=== PATIENT | male | born 1955 | race Hispanic/Latino ===

== ENCOUNTER 2018-06-18 10:20 | Outpatient (CLI) | payer BC | END 2018-06-18 10:21 | disposition home or self-care (01) | LOC: BICRAD 10:20 | PROVIDERS: ATTEND Family Medicine | DX: M79.673 Pain in unspecified foot (principal) ==

== ENCOUNTER 2018-11-25 11:07 | Emergency (ER) | payer BC ==
[2018-11-25 12:11] LABS: #Eosinphils 0.1 thou/uL (0.0-0.7); #Lymphocytes 1.8 thou/uL (1.20-3.40); #Monocytes 0.5 thou/uL (0.11-0.59); #Neutrophils 5.7 thou/uL (1.40-6.50); %Basophils 0.4 % (0.0-1.0); %Eosinophils 0.9 % (0.0-10.0); %Monocytes 5.6 % (0.0-10.0); %Neutrophils 71.1 % (42.0-75.0); Hemoglobin 14.4 g/dL (14.0-18.0); Mean Corpuscular HGB CONC 33.4 g/dL (32.0-36.0); Mean Corpuscular Hemoglobin 28.5 pg (27.0-31.0); Mean Corpuscular Volume 85.3 fL (78.0-98.0); Mean Platelet Volume 8.6 fL (7.4-10.4); Platelet Count 214 thou/uL (130-400); RBC Distribution Width 11.5 % (11.5-14.5); Red Blood Cell (RBC) Count 5.05 mill/uL (4.70-6.10)
[2018-11-25 12:30] LABS: ALT (SGPT) 20 U/L (8-55); AST (SGOT) 18 U/L (5-34); Albumin 4.3 g/dL (3.4-4.8); Alkaline Phosphatase 60 U/L (40-150); Anion Gap 13 mmol/L (10-20); BUN (Urea Nitrogen) 14 mg/dL (8.4-25.7); Bilirubin, Total 0.6 mg/dL (0.2-1.2); Calc. Creatinine Clearance 0 mL/min (70-130); Calcium 9.9 mg/dL (7.8-10.44); Carbon Dioxide 26 mmol/L (23-31); Chloride 103 mmol/L (98-107); Estimated GFR-MDRD Greater than 90; Globulin 3.2 g/dL (2.4-3.5); Glucose 157 mg/dL (80-115); Lipase 24 U/L (8-78); Potassium 4.7 mmol/L (3.5-5.1); Protein, Total 7.5 g/dL (5.8-8.1); Sodium 137 mmol/L (136-145)
[2018-11-25 15:09] LABS: Bilirubin Negative (Negative); Blood, Urine Negative (Negative); Clarity CLEAR (Clear); Glucose, Urine (Dipstick) Negative (Negative); Leukocyte Negative (Negative); Nitrite Negative (Negative); Protein, Urine (Dipstick) Trace mg/dL (Neg-Trace); Specific Gravity, Urine 1.021 (1.002-1.036); Urobilinogen 0.2 mg/dL (0.2-1.0); pH, Urine 5.5 (5.0-9.0)
--- NOTE | 2018-11-25 19:30 | MRI ---
MRI LUMBAR SPINE WITH AND WITHOUT CONTRAST: Date: 11/25/18 HISTORY: Colonoscopy, removed cancerous polyp in past. History of cervical and lumbar fusion. Right hip and ri ght leg pain, starting this morning. COMPARISON: None. TECHNIQUE: MRI of the lumbar spine is performed with and without intravenous Gadolinium administration. Multiseq uential, multiplanar imaging is performed. FINDINGS: There is overall appropriate T1 marrow signal intensity of the lumbar vertebra. There is an intrinsic T1 and T2 hyperintense lesion at L2 compatible with a vertebral body hemangioma. There is no signifi cant STIR hyperintensity to suggest vertebral body edema or ligamentous injury. There is no abnormal enhancement of the vertebral bodies. There is no abnormal enhancement within the thecal sac, includin g the cauda equina and conus medullaris. There are intrinsic T2 hyperintense lesions in the left kidney, likely representing cysts. The overall AP diameter of the central spinal canal is somewhat diminutive secondary to congenitally foreshortened pedicles. T12-L1: Adequate disc hydration. No significant central canal stenosis or foraminal narrowing. L1-L2: Desiccation with mild loss of disc space height. Small left and right paracentral disc bulges without significant central canal stenosis. Moderate bilateral foraminal narrowing. L2-L3: Adequate disc hydration. There is a central/left subarticular disc bulge. Overall, there is m ild central canal stenosis. There is partial obscuration of the traversing left L3 nerve root. Right subarticular zone is unremarkable. Moderate right and left neural foraminal narrowing. L3-L4: Desiccation with mild loss of disc space height. Broad based disc bulge, ligamentum flavum th ickening, and facet hypertrophy of moderate central canal stenosis. There is obscuration of bilateral traversing L4 nerve roots. Moderate right and left foraminal narrowing. L4-L5: Desiccation with moderate loss of disc space height. Broad based disc bulge results in modera te central canal stenosis. There is associated ligamentum flavum thickening and facet hypertrophy. Mo derate bilateral foraminal narrowing. L5-S1: Desiccation with moderate loss of disc space height. There is a generalized disc bulge withou t any significant central canal stenosis. Disc material does encroach upon both subarticular zones wi thout any obscuration of either traversing S1 nerve roots. There is a left hemilaminectomy defect. Th ere is no significant central canal stenosis. Moderate right and moderate to severe left foraminal na rrowing. There is a left hemilaminectomy defect. On the postcontrast images, there is enhancing scar tissue encompassing the traversing left S1 nerve root. IMPRESSION: 1. Degenerative changes of lumbar spine as detailed above. There is moderate central canal stenosis at multiple levels. There is significant foraminal narrowing at multiple levels as described above. 2. Postoperative changes at L5-S1 with enhancing scar tissue encompassing the traversing left S1 ner ve root. POS: [facility]
== END 2018-11-25 20:27 | disposition home or self-care (01) ==
LOC: ERS 11:07
DX: M54.16 Radiculopathy, lumbar region (principal); R33.9 Retention of urine, unspecified; E11.9 Type 2 diabetes mellitus without complications; K21.9 Gastro-esophageal reflux disease without esophagitis; E78.5 Hyperlipidemia, unspecified; I10 Essential (primary) hypertension; Z79.899 Other long term (current) drug therapy; Z79.84 Long term (current) use of oral hypoglycemic drugs; Z79.82 Long term (current) use of aspirin
CPT/HCPCS: 36415; 36416; 51702; 51798; 72158; 80053; 81003; 83690; 85025

== ENCOUNTER 2018-11-26 19:07 | Emergency (ER) | payer BC ==
[2018-11-26 20:01] LABS: #Basophils 0.1 thou/uL (0.0-0.2); #Lymphocytes 1.2 thou/uL (1.20-3.40); #Monocytes 0.3 thou/uL (0.11-0.59); #Neutrophils 5.1 thou/uL (1.40-6.50); %Basophils 0.8 % (0.0-1.0); %Eosinophils 0.1 % (0.0-10.0); %Lymphocytes 17.9 % (21.0-51.0); %Monocytes 3.7 % (0.0-10.0); %Neutrophils 77.4 % (42.0-75.0); Hemoglobin 14.5 g/dL (14.0-18.0); Mean Corpuscular HGB CONC 34.3 g/dL (32.0-36.0); Mean Corpuscular Hemoglobin 28.9 pg (27.0-31.0); Mean Corpuscular Volume 84.3 fL (78.0-98.0); Mean Platelet Volume 9.7 fL (7.4-10.4); Platelet Count 226 thou/uL (130-400); RBC Distribution Width 11.2 % (11.5-14.5); Red Blood Cell (RBC) Count 5.03 mill/uL (4.70-6.10); White Blood Cell (WBC) Count 6.6 thou/uL (4.8-10.8)
[2018-11-26 20:14] LABS: ALT (SGPT) 21 U/L (8-55); AST (SGOT) 23 U/L (5-34); Albumin 4.3 g/dL (3.4-4.8); Alkaline Phosphatase 63 U/L (40-150); Anion Gap 17 mmol/L (10-20); BUN (Urea Nitrogen) 18 mg/dL (8.4-25.7); Bilirubin, Total 0.5 mg/dL (0.2-1.2); Calc. Creatinine Clearance 0 mL/min (70-130); Calcium 9.8 mg/dL (7.8-10.44); Carbon Dioxide 22 mmol/L (23-31); Chloride 103 mmol/L (98-107); Estimated GFR-MDRD 70; Globulin 3.6 g/dL (2.4-3.5); Glucose 221 mg/dL (80-115); Potassium 4.2 mmol/L (3.5-5.1); Protein, Total 7.9 g/dL (5.8-8.1); Sodium 138 mmol/L (136-145)
--- NOTE | 2018-11-26 21:12 | CT ---
HEAD CT WITHOUT CONTRAST: 11/26/18 HISTORY: Right leg numbness and weakness. COMPARISON: None. FINDINGS: No parenchymal hemorrhage or extra-axial hematoma. No midline shift. Basilar cisterns are patent. Bra in volume, age appropriate. Cortical villela-white matter differentiation is preserved. Ventricles and s ulci are patent and symmetric. Note is made of a cavum septum pellucidum and cavum vergae. A lucie cis terna magna is noted. Calvarium is intact. Adequate aeration of the sinuses and mastoid air cells. IMPRESSION: No acute intracranial process. POS: [facility]
--- NOTE | 2018-11-26 22:01 | CT ---
CTA CHEST WITH CONTRAST WITH 3D VOLUME RENDERING CTA ABDOMEN AND PELVIS WITH CONTRAST WITH 3D VOLUME RENDERING 11/26/18 CLINICAL HISTORY: Saddle anesthesia, right sided pain. FINDINGS: Thoracoabdominal aorta is normal in caliber. There is mild vascular calcification. No evidence of acu te dissection or periaortic hematoma. There is coronary artery calcium. Scattered linear densities of the lungs may be related to atelectasis and/or scar. Low attenuation of the hepatic parenchyma may b e related to fatty infiltration and/or phase of enhancement. Correlate with liver function enzymes. T here is a subtle hypodensity of the anterolateral left kidney which may relate to a cyst, although is incompletely characterized on the basis of this exam. There is diffuse osseous degenerative change. IMPRESSION: No evidence of acute aortic dissection, aneurysm or periaortic hematoma. POS: [facility]
== END 2018-11-26 21:58 | disposition home or self-care (01) ==
LOC: SCSER 19:07
DX: R20.2 Paresthesia of skin (principal); E11.9 Type 2 diabetes mellitus without complications; K21.9 Gastro-esophageal reflux disease without esophagitis; E78.5 Hyperlipidemia, unspecified; I10 Essential (primary) hypertension; Z79.84 Long term (current) use of oral hypoglycemic drugs; Z79.899 Other long term (current) drug therapy; Z79.82 Long term (current) use of aspirin
CPT/HCPCS: 70450; 71275; 80053; 85025

== ENCOUNTER 2018-12-08 14:03 | Outpatient (CLI) | payer BC | END 2018-12-08 14:04 | disposition home or self-care (01) | LOC: LABBT 14:03 | PROVIDERS: ATTEND Neurological Surgery | DX: Z01.818 Encounter for other preprocedural examination (principal) | CPT/HCPCS: 93005; 93010 ==

== ENCOUNTER 2018-12-12 05:48 | Day surgery (SDC) | payer BC ==
[2018-12-08 14:22] VITALS: BMI 33.3
--- NOTE | 2018-12-11 17:40 | HP ---
HISTORY OF PRESENT ILLNESS: Mr. Brush is a patient known to us for previous ACDF, who returns now for followup on an ER evaluation of perineal tingling as well as bilateral pain and numbness, right greater than left and also L5 and S1 distribution at night. He also gets some L4 numbness and potentially L3. MRI from last month at [facility] [place] reveals foraminal and lateral recess stenosis of moderate to severe nature at L3-S1 bilaterally that would fit all of his symptoms, although the perineal numbness is rather atypical. As he had prior experience with his neck and ultimately got the surgery, we would rather not do any conservative management at this time and just fix the problem. PAST MEDICAL HISTORY: Significant for diabetes, hyperlipidemia, gastroesophageal reflux disease, and hypertension. MEDICATIONS: 1. Metformin. 2. Lipitor. 3. Lotrel. 4. Nexium. ALLERGIES: NO KNOWN DRUG ALLERGIES. PAST SURGICAL HISTORY: Unspecified back surgery and a C3-5 ACDF. PHYSICAL EXAMINATION: GENERAL: The patient is alert and oriented x3. MUSCULOSKELETAL: Gait is antalgic and slowed. Lower extremity motor exam is normal. ASSESSMENT: Spinal stenosis. PLAN: Dr. Layton met with the patient, reviewed imaging, advocated for right L5-S1 decompression and L5 foraminotomy. He explained to the patient the risks, benefits, and alternatives of the procedure. The patient expressed understanding and elected to move forward with surgery as discussed. I do believe the patient is mentally competent and capable of making medical decisions for himself. We will move forward with surgery as planned. Job ID: [id number]
[2018-12-12] MEDS ORDERED: Bupivacaine HCl 0.5%/Epinephrine 1:200,000/PF 30 ml Vial ONE (06:21)
[2018-12-12] MEDS ORDERED: Thrombin 5000 UNITS/5 ML VIAL ONE (06:21)
[2018-12-12] MEDS ORDERED: Fentanyl 100 MCG/2 ML VIAL ONE ×2 (06:30→08:57)
[2018-12-12] MEDS ORDERED: Tamsulosin HCl 0.4 MG CAP ONE (08:44)
--- NOTE | 2018-12-12 09:40 | OP ---
DATE OF PROCEDURE: 12/12/2018 MEDICAID BILLING SPECIALIST: Dakota Martinez PA-C. INDICATION: Pain. DIAGNOSIS: Lumbar radiculopathy. PROCEDURE: L5-S1 lumbar decompression, right. ANESTHESIA: General. DESCRIPTION OF PROCEDURE: The patient was brought into the operating room, placed under general anesthesia. He was flipped from supine to prone position on the operating room table. A linear incision was planned on the right at L5. After prepping and draping and after preoperative pause, the incision was created. The soft tissues were swept right of midline. A self-retaining retractor was placed in the wound for optimal exposure. After confirming appropriate level with C-arm fluoroscopy, high-speed cutting drill bit was used to perform a laminectomy extending through L5, inferior aspect of L4, and the superior aspect of S1. The exiting and descending L5 nerve root was identified as was the descending S1 nerve root. Medial facetectomy was performed over the exiting L5 nerve root in order to decompress the foramen. The wound was then irrigated. Hemostasis was maintained throughout. The wound was then closed in anatomic layers and a pressure dressing was applied. There were no known procedural complications. Job ID: [id number]
[2018-12-12] MEDS ORDERED: HYDROcodone/Acetaminophen 5/325 mg Tablet ONE (10:19)
[2018-12-12] MEDS ORDERED: diphenhydrAMINE 50 MG/ML VIAL ONE (16:18)
[2018-12-12] MEDS ORDERED: Lidocaine 1% PF 5 ML VIAL ONE (16:18)
[2018-12-12] MEDS ORDERED: Ondansetron PF 4 MG/2 ML Vial ONE (16:18)
[2018-12-12] MEDS ORDERED: Rocuronium Bromide 10 MG/ML (10ML VIAL) ONE (16:18)
[2018-12-12] MEDS ORDERED: PROPOFOL 200 MG/20 ML VIAL ONE (16:18)
[2018-12-12] MEDS ORDERED: Metoclopramide HCl 10 MG/2 ML VIAL ONE (16:18)
== END 2018-12-12 17:30 | disposition home or self-care (01) ==
LOC: SDC 05:48
PROVIDERS: ATTEND Neurological Surgery
PROC: 01NB0ZZ Release Lumbar Nerve, Open Approach (ICD-10-PCS; principal; 2018-12-12)
DX: M54.17 Radiculopathy, lumbosacral region (principal); M48.07 Spinal stenosis, lumbosacral region; I10 Essential (primary) hypertension; E11.9 Type 2 diabetes mellitus without complications; E78.5 Hyperlipidemia, unspecified; K21.9 Gastro-esophageal reflux disease without esophagitis; Z98.1 Arthrodesis status; Z79.82 Long term (current) use of aspirin; Z79.84 Long term (current) use of oral hypoglycemic drugs; Z79.899 Other long term (current) drug therapy
CPT/HCPCS: 51798; 76000; G0103; J0670; J1200; J2001; J2405; J2704; J2765; J3010

== ENCOUNTER 2019-05-12 08:59 | Outpatient (CLI) | payer BC ==
--- NOTE | 2019-05-12 10:38 | MRI ---
MRI of the lumbar spine with and without contrast: 05/12/2019 COMPARISON: 11/25/2018 HISTORY: Peripheral neuropathy, lumbar spine surgery in the past, bilateral lower extremity radiculop athy TECHNIQUE: Multiplanar multisequence MR imaging of the lumbar spine obtained with and without contras t FINDINGS: The sagittal STIR imaging demonstrates no focal area of osseous marrow edema. There is mild postoperative increased STIR signal associated with the right-sided paraspinal musculature at the L5 and S1 level. There is a benign hemangioma within the L2 vertebral body. On the basis of 5 lumbar type vertebral bodies, the conus medullaris terminates at the T12-L1 level. T12-L1: Mild bilateral facet hypertrophy with no significant central canal or neural foraminal stenos is. L1-2: There is disc space narrowing and disc desiccation with mild disc bulge, stable. Stable mild bi lateral facet hypertrophy. There is moderate left and mild right neural foraminal stenosis. No significant central canal stenosis. L2-3: Stable disc desiccation and mild disc bulge. No significant central canal stenosis. Mild bilate ral facet hypertrophy. Mild right and moderate left neural foraminal stenosis. L3-4: There is disc space narrowing, disc desiccation, and disc bulge with superimposed disc protrusi on in the right paracentral and right foraminal region. This causes a moderate degree of central canal stenosis, slightly worsened, with severe right lateral recess stenosis. Bilateral facet hypertr ophy noted with moderate/severe bilateral neural foraminal stenosis, right greater than left. L4-5: Prominent bilateral facet hypertrophy. Disc space narrowing with disc desiccation and mild disc bulge. No significant central canal stenosis. Severe left and moderate right neural foraminal stenosis noted. Small developing synovial cyst noted along the medial aspect of the left facet joint measuring 7-8 mm. L5-S1: Disc space narrowing and disc desiccation with mild disc bulge and mild central canal stenosis . Prominent bilateral facet hypertrophy, right greater than left. Vacuum disc formation noted. Severe bilateral neural foraminal stenosis. There is a very small disc herniation in the right parace ntral region with slight inferior migration. Review of the retroperitoneal structures demonstrates no acute findings. The postcontrast imaging dem onstrates enhancement of the posterior right-sided paraspinal musculature at the L5 and S1 levels, consistent with prior surgery in this location. There is enhancement within the right neural foramen at the L5-S1 level suggesting postoperative scar. There is probable associated enhancement of the right L5 nerve root. IMPRESSION: Prominent multilevel degenerative change noted within the lumbar spine as detailed above. Postoperative changes are noted as well with associated scar, including within the neural foramen on the right at L5-S1.
[2019-05-12] MEDS ORDERED: Gadobenate Dimeglumine 529 MG/1 ML (20ML VIAL) ONE (14:03)
== END 2019-05-12 09:00 | disposition home or self-care (01) ==
LOC: BICMRI 08:59
PROVIDERS: ATTEND Psychiatry & Neurology Neurology
DX: G62.9 Polyneuropathy, unspecified (principal); M47.816 Spondylosis without myelopathy or radiculopathy, lumbar region; Z98.890 Other specified postprocedural states
CPT/HCPCS: 72158; A9577

== ENCOUNTER 2019-05-30 03:20 | Inpatient (IN) | payer BC ==
[2019-05-30 04:04] LABS: Bilirubin Negative (Negative); Blood, Urine Small (Negative); Clarity Cloudy (Clear); Glucose, Urine (Dipstick) Negative (Negative); Leukocyte Small (Negative); Nitrite Negative (Negative); Protein, Urine (Dipstick) Trace mg/dL (Neg-Trace); Urobilinogen 0.2 mg/dL (Less than 2)
[2019-05-30 04:07] LABS: ALT (SGPT) 25 U/L (8-55); AST (SGOT) 15 U/L (5-34); Alkaline Phosphatase 48 U/L (40-150); Anion Gap 16 mmol/L (10-20); BUN (Urea Nitrogen) 16 mg/dL (8.4-25.7); Bilirubin, Total 1.3 mg/dL (0.2-1.2); Calc. Creatinine Clearance 0 mL/min (70-130); Calcium 9.4 mg/dL (7.8-10.44); Carbon Dioxide 22 mmol/L (23-31); Chloride 103 mmol/L (98-107); Estimated GFR-MDRD 72; Globulin 3.3 g/dL (2.4-3.5); Glucose 149 mg/dL (80-115); Potassium 3.9 mmol/L (3.5-5.1); Protein, Total 7.3 g/dL (5.8-8.1); Sodium 137 mmol/L (136-145)
[2019-05-30 04:09] LABS: Band 3 % (5-11); Hemoglobin 12.8 g/dL (14.0-18.0); Lymphocytes 10 % (21-51); MDiff Complete? YES; Mean Corpuscular HGB CONC 35.7 g/dL (32.0-36.0); Mean Corpuscular Hemoglobin 30.3 pg (27.0-31.0); Mean Corpuscular Volume 85.1 fL (78.0-98.0); Mean Platelet Volume 8.1 fL (7.4-10.4); Monocytes 5 % (0-10); Neutrophil 82 % (42-75); Platelet Count 189 thou/uL (130-400); RBC Distribution Width 11.7 % (11.5-14.5); Red Blood Cell (RBC) Count 4.22 mill/uL (4.70-6.10); Toxic Granulation SLIGHT; White Blood Cell (WBC) Count 23.7 thou/uL (4.8-10.8)
[2019-05-30 04:13] LABS: Bacteria/HPF Rare-Few HPF (None Seen); RBC/HPF 0-3 HPF (0-3); Squamous Epithelial 0-3 HPF (0-3); WBC/HPF 21-50 HPF (0-3)
[2019-05-30] MEDS ORDERED: cefTRIAXone\\ROCEPHIN 2 GM VIAL ONE (04:39)
[2019-05-30 06:41] VITALS: BMI 31.3
[2019-05-30] MEDS ORDERED: Ondansetron PF 4 MG/2 ML Vial IVP PRN ×2 (06:47→08:04)
[2019-05-30] MEDS ORDERED: Ondansetron ODT 4 MG TAB PO PRN (06:48)
[2019-05-30] MEDS ORDERED: Acetaminophen 325 MG TAB PO PRN (06:48)
[2019-05-30] MEDS ORDERED: Lactated Ringer's 1,000 ML IV SCH (07:00)
[2019-05-30] MEDS ORDERED: Bisacodyl 5 MG TAB PO PRN (08:04)
[2019-05-30] MEDS ORDERED: Senokot S 8.6-50 MG TAB PO PRN (08:04)
[2019-05-30] MEDS ORDERED: traMADol HCl 50 MG TAB PO PRN (08:05)
[2019-05-30] MEDS: Aspirin 81 mg Enteric Coated Tablet PO SCH (09:27)
[2019-05-30] MEDS: Tamsulosin HCl 0.4 MG CAP PO SCH ×2 (09:27→20:12)
[2019-05-30] MEDS: Enoxaparin Sodium 40 MG/0.4 ML SYRINGE SC SCH (09:27)
[2019-05-30] MEDS: Amlodipine 5 mg/Benazepril 20 mg CAP PO SCH (09:40)
--- NOTE | 2019-05-30 09:48 | RAD ---
CHEST 1 VIEW: Date: 05/30/19 HISTORY: Pain. Fever. FINDINGS: Normal cardiac silhouette. Lungs and pleural spaces are clear. No pneumothorax or osseous abnormaliti es. IMPRESSION: No acute cardiopulmonary process. POS: [facility]
[2019-05-30] MEDS: Acetaminophen 325 MG TAB PO PRN ×2 (12:13→20:18)
[2019-05-30] MEDS ORDERED: TICAGRELOR 90 MG TABLET PO SCH (12:30)
--- NOTE | 2019-05-30 14:29 | CT ---
CT ABDOMEN WITHOUT CONTRAST: CT PELVIS WITHOUT CONTRAST: HISTORY: Complicated, febrile urinary tract infection. Flank pain. COMPARISON: None. CORRELATION: Dissection protocol CT from 11/26/2018. FINDINGS: ABDOMEN: The lung bases are clear. Normal heart size. Unremarkable aorta. Limited evaluation of t he solid organs by lack of IV contrast. Grossly no solid organ abnormality. Gallbladder: Unremarkable. No gastrohepatic, retrocrural, or periportal lymphadenopathy. No mesenteric mass, lymphadenopathy, free air, or free fluid. Limited evaluation of the alimentary canal due to lack of oral contrast. No evidence of small bowel obstruction. Ileocecal junction is unremarkable. Normal caliber appendix. Scattered fecal material in a nondistended, nondilated colon. Diverticulosis without evidence of diverticulitis. Bilaterally no hydronephrosis, nephrolithiasis, or significant perinephric fat stranding. Bilateral ureters have a normal caliber. No hydroureter, periureteral fat stranding, or choledocholithiasis. There is a hypodensity in the mid to upper pole left kidney, measuring 0.9 x 1.2 cm, with an attenua tion coefficient suggesting a simple cyst. PELVIS: A Contreras catheter is noted in the urinary bladder. No pelvic mass, lymphadenopathy, free air , or free fluid. No lytic or blastic lesions in the osseous structures. IMPRESSION: No evidence of obstructive uropathy. Transcribed Date/Time: 05/30/2019 2:41 PM
[2019-05-30] MEDS ORDERED: cefTRIAXone\\ROCEPHIN 1 GM in Sodium Chloride 0.9% 100 ML IVPB SCH (16:00)
--- NOTE | 2019-05-30 17:16 | CON ---
DATE OF CONSULTATION: 05/30/2019 REASON FOR CONSULTATION: Urinary retention and UTI. HISTORY OF PRESENT ILLNESS: Mr. Brush is a 64-year-old male with past urologic history significant for BPH, evidently back earlier this year or last year, the patient had been seen several times by Dr. Almanzar as an outpatient. She was working him up for lower urinary tract symptoms and stated that he likely needed a BPH procedure. She scheduled him for cardiac clearance and he was found to have a 95% blockage in one of his coronary arteries and he underwent percutaneous intervention with drug-eluting stent placement. This delayed his elective surgical therapy for his prostate. He had been voiding well with minimal lower urinary tract symptoms on tamsulosin b.i.d. as well as finasteride, but evening, he developed dysuria, frequency, hesitancy, and urgency. The patient presented to an urgent care and was found to be febrile to 103. He was given IV fluids what sounds to be Rocephin IV and was discharged home on antibiotics. Initially, the patient had improvement of his symptoms; however, early this morning, he had acute worsening of his symptoms, fever up to 101.7, and he presented to the [facility] ER and was found to be febrile. He was having extreme voiding difficulty. A Contreras catheter was placed and had immediate drainage of 600 mL of yellow urine. The patient was admitted for complicated urinary tract infection and urinary retention. The patient is already feeling much better. He denies similar episodes in the past. He has had some degenerative disk disease with what sounds to be some spinal cord narrowing with some neurologic changes, for which he is currently undergoing workup by Dr. Layton. He does not have any numbness in his lower extremities. He is very active and completely ambulatory. He has had no issues with urinary incontinence or fecal incontinence. No history of kidney stones. He denies any flank pain. No other complaints. REVIEW OF SYSTEMS: Full 12-point review of systems was performed and is negative other than that mentioned in HPI. PAST MEDICAL HISTORY: GERD, hyperlipidemia, hypertension, and early colon cancer treated endoscopically. PAST SURGICAL HISTORY: Spinal surgery in 1994 and C-spine surgery in 2017. FAMILY HISTORY: Noncontributory. SOCIAL HISTORY: The patient is a retired public safety officer. No tobacco, alcohol, or drugs. He lives at home. ALLERGIES: NO KNOWN DRUG ALLERGIES. MEDICATIONS: 1. Finasteride. 2. Brilinta. 3. Macrobid. 4. Metformin. 5. Aspirin. 6. Protonix. 7. Amlodipine. 8. Atorvastatin. 9. Tamsulosin b.i.d. PHYSICAL EXAMINATION: VITAL SIGNS: Temperature is 100, blood pressure 138/110, pulse 90, respirations 18, and oxygen saturation 97% on room air. GENERAL: He is alert and oriented x3, in no apparent distress. HEENT: Normocephalic and atraumatic. Sclerae anicteric. NECK: Supple. No masses or lymphadenopathy. CARDIOVASCULAR: Mildly tachycardic, but regular. PULMONARY: Breathing unlabored. No wheezing. ABDOMEN: Soft and nontender/nondistended. No masses or organomegaly. No suprapubic tenderness to palpation. No CVA tenderness. GENITOURINARY: Normal penis without concerning lesion. Circumcised. Meatus normal. Scrotum normal. Left testis and epididymis palpably normal. Right testis palpably normal. Right epididymis with approximate 5 cm epididymal cyst likely consistent with spermatocele. EXTREMITIES: Warm and well perfused. No edema. NEUROLOGIC: No focal deficits. LABORATORY DATA: White blood cell count 23.7, hemoglobin 12.8, hematocrit 35.9, and platelets 189. Sodium 137, potassium 3.9, chloride 103, bicarb 22, BUN 16, and creatinine 1.04. Urine demonstrates 0 to 3 red blood cells per high-power field, 21 to 50 white blood cells per high-power field, and nitrite negative. ASSESSMENT: A 64-year-old male with urinary retention and complicated urinary tract infection. PLAN: I reviewed urinary retention in the setting of UTI with the patient in detail. Etiology of this is unclear. Given his very high fevers with this UTI, we will perform CT of the abdomen and pelvis to ensure that there is no upper tract abnormality. The febrile UTI is likely secondary to the fact that he was in retention at the time of UTI and had incomplete bladder emptying. Also, the patient appears to have been on Macrobid as an outpatient, which for complicated male urinary tract infection would not be the antibiotic agent of choice and therefore may have just been inadequately treated. Continue broad-spectrum antibiotics until the patient's symptoms improve, at which point, he can be discharged on a course of p.o. antibiotics. His Contreras catheter should remain in place at the time of discharge, and I will see him likely Saturday of next week for outpatient voiding trial. We will follow up results of CT scan. Job ID: [id number]
[2019-05-30] MEDS: metFORMIN 500 MG TAB PO SCH (17:33)
[2019-05-30] MEDS: Atorvastatin Calcium 10 MG TAB PO SCH (20:11)
[2019-05-30] MEDS: TICAGRELOR 90 MG TABLET PO SCH (20:11)
[2019-05-30] MEDS: Gabapentin 300 MG CAP PO SCH (20:48)
[2019-05-30] MEDS: Sodium Chloride 0.9% 1,000 ML IV SCH (20:51)
--- NOTE | 2019-05-30 21:56 | HP ---
CHIEF COMPLAINT: Urinary retention and fever. HISTORY OF PRESENT ILLNESS: The patient is a 64-year-old male with a history of CAD, status post stent back in January 2019, history of diabetes, hypertension, and BPH, who presents to the hospital with complaints of urinary retention and fever x2 or 3 days. The patient stated that he was supposed to get a TURP earlier this year; however, when he was getting worked up for clearance for TURP, he was found to have a 95% blockage and underwent a stent that was placed in January 2019. The patient states that about or Saturday, he started having generalized body aches and pains and did not feel well. He is also having trouble urinating. At this time, he was taken to an urgent express care where a urine sample indicated that he had a UTI. He was given a shot of IV antibiotics and also was prescribed oral antibiotics. The patient stated that his symptoms did not improve. He was having more problems urinating and also burning when he was urinating, so he came into the ER for further evaluation. In the ER, he was found to have a fever of 101 or 102. The patient at this time, has a Contreras catheter inserted and he was started on IV antibiotics. PAST MEDICAL HISTORY: History of CAD, status post stent x1. He has had a BPH. He has had diabetes and hypertension. PAST SURGICAL HISTORY: He has had a stent x1. He has also had a polyp that was cancer, is removed; however, repeat colonoscopies indicated it was normal. ALLERGIES: HE HAS NO KNOWN DRUG ALLERGIES. MEDICATIONS: Are as of the following. He is on; 1. Brilinta 90 mg b.i.d. 2. Thiamine 100 mg daily. 3. Vitamin B6 100 daily. 4. Protonix 40 mg daily. 5. Metformin 1000 b.i.d. 6. Atorvastatin 10 mg at bedtime. 7. Aspirin 81 mg daily. 8. Amlodipine/benazepril 5 mg/20 mg 1 p.o. daily. 9. Nitrofurantoin 100 mg b.i.d. 10. Tamsulosin. 11. Finasteride. FAMILY HISTORY: No history of heart disease or strokes. REVIEW OF SYSTEMS: All negative except the ones mentioned above in the HPI. PHYSICAL EXAMINATION: VITAL SIGNS: Temperature of 100.3, heart rate 108, respiratory rate 20, oxygen saturation 91% on room air, blood pressure 106/63. GENERAL: He is awake, alert, and oriented x3. Does not appear in any distress. CV: S1 and S2 present. No murmurs, rubs, or gallops. LUNGS: Clear to auscultation. No rhonchi or wheezes noted. ABDOMEN: Soft and nontender. Bowel sounds are present x2. EXTREMITIES: No edema. Pedal pulses are present x2. NEUROVASCULAR: No focal deficits noted. SKIN: No cuts, lesions, or bruises noted. LABORATORY RESULTS: As of the following; WBCs of 23.7, hemoglobin of 12.8, hematocrit of 35.9. His bands were 3. Chemistry; sodium of 137, potassium of 3.9, BUN of 16, creatinine 1.04. His total bilirubin was elevated at 1.3. Urine showed small blood and small leukocyte esterase and WBCs of 21 to 50. ASSESSMENT AND PLAN: The patient is a 64-year-old male, who presents to the hospital with complaints of generalized body aches and pains, and fever. 1. Sepsis, most likely secondary to urinary source. I will get a CT of abdomen and pelvis. I have called the Urgent Care and they stated that the urine was sent for microbiology. I will wait for the microbiology results. In the meantime, I will start the patient on Rocephin. I will also consult Urology. He still has a Contreras catheter in place. 2. Coronary artery disease, recently he had a stent placed in January 2019. We will continue the Brilinta and aspirin. 3. History of diabetes. We will check Accu-Cheks before meals and at bedtime and also start him back on the metformin. 4. Hypertension. We will continue his home medications. 5. Benign prostatic hyperplasia. We will continue the Flomax and finasteride. 6. DVT prophylaxis. We will put the patient on subcu heparin. Job ID: [id number]
[2019-05-31] MEDS ORDERED: cefTRIAXone\\ROCEPHIN 1 GM in Sodium Chloride 0.9% 100 ML IVPB SCH (05:00)
[2019-05-31 06:03] LABS: #Lymphocytes 1.2 thou/uL (1.20-3.40); #Monocytes 0.7 thou/uL (0.11-0.59); #Neutrophils 12.1 thou/uL (1.40-6.50); %Basophils 0.1 % (0.0-1.0); %Eosinophils 0.1 % (0.0-10.0); %Lymphocytes 8.2 % (21.0-51.0); %Monocytes 5.3 % (0.0-10.0); %Neutrophils 86.3 % (42.0-75.0); Hemoglobin 11.3 g/dL (14.0-18.0); Mean Corpuscular HGB CONC 33.7 g/dL (32.0-36.0); Mean Corpuscular Hemoglobin 29.8 pg (27.0-31.0); Mean Corpuscular Volume 88.2 fL (78.0-98.0); Mean Platelet Volume 8.2 fL (7.4-10.4); Platelet Count 173 thou/uL (130-400); RBC Distribution Width 11.8 % (11.5-14.5); Red Blood Cell (RBC) Count 3.79 mill/uL (4.70-6.10)
[2019-05-31 06:23] LABS: Anion Gap 11 mmol/L (10-20); BUN (Urea Nitrogen) 13 mg/dL (8.4-25.7); Calc. Creatinine Clearance 125 mL/min (70-130); Calcium 8.8 mg/dL (7.8-10.44); Carbon Dioxide 24 mmol/L (23-31); Chloride 105 mmol/L (98-107); Estimated GFR-MDRD Greater than 90; Glucose 120 mg/dL (80-115); Potassium 3.8 mmol/L (3.5-5.1); Sodium 136 mmol/L (136-145)
[2019-05-31] MEDS: metFORMIN 500 MG TAB PO SCH ×2 (08:25→14:04)
[2019-05-31] MEDS: Cyanocobalamin (Vitamin B-12) 1,000 MCG TAB PO SCH (08:26)
[2019-05-31] MEDS: Aspirin 81 mg Enteric Coated Tablet PO SCH (08:27)
[2019-05-31] MEDS: pyridOXINE 50 MG (B6) TAB PO SCH (08:27)
[2019-05-31] MEDS: Gabapentin 300 MG CAP PO SCH ×3 (08:27→20:27)
[2019-05-31] MEDS: Finasteride 5 MG TAB PO SCH (08:28)
[2019-05-31] MEDS: Tamsulosin HCl 0.4 MG CAP PO SCH ×2 (08:28→20:27)
[2019-05-31] MEDS: Thiamine 100 MG TAB PO SCH (08:28)
[2019-05-31] MEDS: Sodium Chloride 0.9% 1,000 ML IV SCH (08:29)
[2019-05-31] MEDS: Amlodipine 5 mg/Benazepril 20 mg CAP PO SCH (08:31)
[2019-05-31] MEDS: TICAGRELOR 90 MG TABLET PO SCH ×2 (08:32→20:28)
[2019-05-31] MEDS: Enoxaparin Sodium 40 MG/0.4 ML SYRINGE SC SCH (08:34)
[2019-05-31] MEDS: Acetaminophen 325 MG TAB PO PRN ×2 (16:03→22:56)
--- NOTE | 2019-05-31 16:11 | PDOC.HOSPP ---
- Subjective Subjective: pt up in bed feels well - Objective Vital Signs & Weight: Vital Signs (12 hours) Temp Pulse Resp BP Pulse Ox 05/31/19 16:00 102.3 F H 05/31/19 14:10 100.1 F H 05/31/19 12:00 100.1 F H 05/31/19 08:00 99.6 F 99 18 146/93 H 96 05/31/19 05:44 104 H Weight Weight 212 lb I&O: 05/30/19 05/31/19 06/01/19 06:59 06:59 06:59 Intake Total 2350 1900 Output Total 2700 1200 Balance -350 700 Result Diagrams: 05/31/19 05:44 05/31/19 05:44 Additional Labs: Accuchecks 05/31/19 05/31/19 05/30/19 12:10 04:35 20:07 POC Glucose 93 124 H 132 H 05/30/19 17:39 POC Glucose 124 H ROS - Review of Systems All systems: All other ROS were reviewed and found negative. Respiratory: denies: cough, dry, shortness of breath, hemoptysis, SOB with excertion, pleuritic pain, sputum, wheezing, other Cardiovascular: denies: chest pain, palpitations, orthopnea, paroxysmal noc. dyspnea, edema, light headedness, other Gastrointestinal: denies: nausea, vomitting, abdominal pain, diarrhea, constipation, melena, hematochezia, other - Medication Medications: Active Medications Generic Name Dose Route Start Last Admin Trade Name Freq PRN Reason Stop Dose Admin Acetaminophen 650 mg 05/30/19 08:04 05/31/19 16:03 Tylenol PO 650 mg Q4H PRN Administration Headache/Fever/Mild Pain (1-3) Amlodipine/Benazepril HCl 1 cap 05/30/19 09:00 05/31/19 08:31 Lotrel 5/20 PO 1 cap QAM MARIA R Administration Aspirin 81 mg 05/30/19 09:00 05/31/19 08:27 Ecotrin PO 81 mg DAILY MARIA R Administration Atorvastatin Calcium 10 mg 05/30/19 21:00 05/30/19 20:11 Lipitor PO 10 mg HS MARIA R Administration Cyanocobalamin 2,000 mcg 05/31/19 09:00 05/31/19 08:26 Vitamin B-12 PO 2,000 mcg DAILY MARIA R Administration Enoxaparin Sodium 40 mg 05/30/19 09:00 05/31/19 08:34 Lovenox SC 40 mg 0900 MARIA R Administration Finasteride 5 mg 05/31/19 09:00 05/31/19 08:28 Proscar PO 5 mg DAILY MARIA R Administration Gabapentin 300 mg 05/30/19 21:00 05/31/19 14:04 Neurontin PO 300 mg TID MARIA R Administration Metformin HCl 1,000 mg 05/30/19 17:00 05/31/19 14:04 Glucophage PO 1,000 mg BID-WM MARIA R Administration Pantoprazole Sodium 40 mg 05/30/19 09:00 05/31/19 08:28 Protonix PO 40 mg QAM MARIA R Administration Pyridoxine HCl 100 mg 05/31/19 09:00 05/31/19 08:27 Vitamin B 6 PO 100 mg DAILY MARIA R Administration Sodium Chloride 10 ml 05/30/19 09:00 05/31/19 08:34 Flush - Normal Saline IVF Not Given Q12HR [facility] Tamsulosin HCl 0.4 mg 05/30/19 09:00 05/31/19 08:28 Flomax PO 0.4 mg BID MARIA R Administration Thiamine HCl 100 mg 05/31/19 09:00 05/31/19 08:28 Thiamine PO 100 mg DAILY MARAI R Administration Ticagrelor 90 mg 05/30/19 21:00 05/31/19 08:32 Brilinta PO 90 mg BID MARIA R Administration - Exam Heart: negative: RRR, no murmur, no gallops, no rubs, normal peripheral pulses, irregular, diminshed peripheral pulses, murmur present, II/IV, III/IV Respiratory: negative: CTAB, no wheezes, no rales, no ronchi, normal chest expansion, no tachypnea, normal percussion, rales, rhonchi, tachypneic, wheezes Gastrointestinal: negative: soft, non-tender, non-distended, normal bowel sounds , no palpable masses, no hepatomegaly, no splenomegaly, no bruit, tender to palpation, distended, diminished bowl sounds, voluntary guarding Hosp A/P (1) Sepsis Code(s): A41.9 - SEPSIS, UNSPECIFIED ORGANISM Status: Acute (2) UTI (urinary tract infection) Status: Acute (3) CAD (coronary artery disease) Code(s): I25.10 - ATHSCL HEART DISEASE OF [place] CORONARY ARTERY W/O ANG PCTRS Status: Acute - Plan will continue brillanta for recent stent. He is still spiking fever of 102.0 will change abx to meropenem. cx pending. ct abd/pel no acute process.
[2019-05-31] MEDS: MEROPENEM 1 GM/50 ML 1 GM in Premix Bag 1 BAG IVPB SCH (16:30)
--- NOTE | 2019-05-31 16:34 | PRG ---
DATE OF SERVICE: 05/31/2019 SUBJECTIVE: Overall, the patient is feeling much better. He had a CT of the abdomen and pelvis yesterday, which did not demonstrate any sign of obstructive uropathy. There were no stones or hydronephrosis present. The patient continues to spike low-grade fever. His white blood cell count is improving. He is tolerating his diet. No nausea. No complaints. OBJECTIVE: VITAL SIGNS: Temperature; T-max is 100.1, T-current 100.1. Pulse is 90s to 100s, respirations 18, oxygen saturation 96% on room air, and blood pressure 146/93. GENERAL: He is awake and alert, in no apparent distress. CARDIOVASCULAR: Regular rate and rhythm. PULMONARY: Breathing unlabored. ABDOMEN: Soft, nontender, and nondistended. GENITOURINARY: Contreras catheter draining clear yellow urine. EXTREMITIES: Warm and well perfused. No edema. LABORATORY DATA: White blood cell count 14.0, hemoglobin 11.3, hematocrit 33.4, and platelets 173. Sodium 136, potassium 3.8, chloride 105, bicarb 24, BUN 13, and creatinine 0.81. RADIOLOGY DATA: CT of the abdomen and pelvis demonstrates no significant hydroureteronephrosis. No sign of obstructive uropathy. These films reviewed and agreed with radiologist's interpretation. PLAN: The patient is clinically improving. He continues to have low-grade fever, but his white blood cell count is improving. He does have a culture demonstrating 25,000 to 75,000 colony-forming units of gram-negative rods. Sensitivities are pending. Once his fever resolves, he can be discharged home on a minimum 10-day course of culture-specific antibiotics, and we will schedule him close followup as an outpatient for voiding trial and further workup of his BPH. Thank you for allowing me to participate in the care of this patient. Job ID: [id number]
[2019-05-31] MEDS ORDERED: Meropenem 1 GM in Sodium Chloride 0.9% 100 ML IVPB SCH (17:00)
[2019-05-31] MEDS: Atorvastatin Calcium 10 MG TAB PO SCH (20:28)
[2019-06-01] MEDS: MEROPENEM 1 GM/50 ML 1 GM in Premix Bag 1 BAG IVPB SCH ×3 (01:12→16:29)
[2019-06-01] MEDS: Acetaminophen 325 MG TAB PO PRN ×2 (05:32→22:33)
[2019-06-01 06:31] LABS: #Lymphocytes 1.1 thou/uL (1.20-3.40); #Monocytes 0.6 thou/uL (0.11-0.59); #Neutrophils 5.7 thou/uL (1.40-6.50); %Basophils 0.2 % (0.0-1.0); %Eosinophils 0.1 % (0.0-10.0); %Lymphocytes 14.6 % (21.0-51.0); %Monocytes 8.4 % (0.0-10.0); %Neutrophils 76.7 % (42.0-75.0); Hemoglobin 11.8 g/dL (14.0-18.0); Mean Corpuscular Hemoglobin 29.7 pg (27.0-31.0); Mean Corpuscular Volume 87.2 fL (78.0-98.0); Mean Platelet Volume 8.7 fL (7.4-10.4); Platelet Count 178 thou/uL (130-400); RBC Distribution Width 11.7 % (11.5-14.5); Red Blood Cell (RBC) Count 3.96 mill/uL (4.70-6.10); White Blood Cell (WBC) Count 7.5 thou/uL (4.8-10.8)
[2019-06-01] MEDS: Aspirin 81 mg Enteric Coated Tablet PO SCH (08:43)
[2019-06-01] MEDS: metFORMIN 500 MG TAB PO SCH ×2 (08:43→16:29)
[2019-06-01] MEDS: pyridOXINE 50 MG (B6) TAB PO SCH (08:43)
[2019-06-01] MEDS: Finasteride 5 MG TAB PO SCH (08:43)
[2019-06-01] MEDS: Tamsulosin HCl 0.4 MG CAP PO SCH ×2 (08:43→20:09)
[2019-06-01] MEDS: Amlodipine 5 mg/Benazepril 20 mg CAP PO SCH (08:43)
[2019-06-01] MEDS: Cyanocobalamin (Vitamin B-12) 1,000 MCG TAB PO SCH (08:44)
[2019-06-01] MEDS: TICAGRELOR 90 MG TABLET PO SCH ×2 (08:44→20:10)
[2019-06-01] MEDS: Thiamine 100 MG TAB PO SCH (08:44)
[2019-06-01] MEDS: Gabapentin 300 MG CAP PO SCH ×3 (08:44→20:10)
[2019-06-01] MEDS: Enoxaparin Sodium 40 MG/0.4 ML SYRINGE SC SCH (08:44)
--- NOTE | 2019-06-01 16:27 | PDOC.HOSPP ---
- Subjective Subjective: pt up in bed feels well - Objective Vital Signs & Weight: Vital Signs (12 hours) Temp Pulse Resp BP BP Pulse Ox 06/01/19 13:02 98.4 F 91 16 137/87 97 06/01/19 08:12 98.5 F 91 16 132/78 97 06/01/19 08:00 97 06/01/19 04:57 100.5 F H 97 20 136/87 97 Weight Admit Weight 212 lb Weight 212 lb I&O: 05/31/19 06/01/19 06/02/19 06:59 06:59 06:59 Intake Total 2350 1900 Output Total 2700 1200 Balance -350 700 Result Diagrams: 06/01/19 05:48 05/31/19 05:44 Additional Labs: Accuchecks 06/01/19 05/31/19 05/31/19 04:50 20:14 15:58 POC Glucose 115 H 136 H 176 H ROS - Review of Systems All systems: All other ROS were reviewed and found negative. Respiratory: denies: cough, dry, shortness of breath, hemoptysis, SOB with excertion, pleuritic pain, sputum, wheezing, other Cardiovascular: denies: chest pain, palpitations, orthopnea, paroxysmal noc. dyspnea, edema, light headedness, other Gastrointestinal: denies: nausea, vomitting, abdominal pain, diarrhea, constipation, melena, hematochezia, other - Medication Medications: Active Medications Generic Name Dose Route Start Last Admin Trade Name Freq PRN Reason Stop Dose Admin Acetaminophen 650 mg 05/30/19 08:04 06/01/19 05:32 Tylenol PO 650 mg Q4H PRN Administration Headache/Fever/Mild Pain (1-3) Amlodipine/Benazepril HCl 1 cap 05/30/19 09:00 06/01/19 08:43 Lotrel 5/20 PO 1 cap QAM MARIA R Administration Aspirin 81 mg 05/30/19 09:00 06/01/19 08:43 Ecotrin PO 81 mg DAILY MARIA R Administration Atorvastatin Calcium 10 mg 05/30/19 21:00 05/31/19 20:28 Lipitor PO 10 mg HS MARIA R Administration Cyanocobalamin 2,000 mcg 05/31/19 09:00 06/01/19 08:44 Vitamin B-12 PO 2,000 mcg DAILY MARIA R Administration Enoxaparin Sodium 40 mg 05/30/19 09:00 06/01/19 08:44 Lovenox SC 40 mg 0900 MARIA R Administration Finasteride 5 mg 05/31/19 09:00 06/01/19 08:43 Proscar PO 5 mg DAILY MARIA R Administration Gabapentin 300 mg 05/30/19 21:00 06/01/19 08:44 Neurontin PO 300 mg TID MARIA R Administration Meropenem 1 gm/ Device 50 mls @ 200 mls/hr 05/31/19 17:00 06/01/19 08:44 IVPB 50 mls Q8H MARIA R Administration Metformin HCl 1,000 mg 05/30/19 17:00 06/01/19 08:43 Glucophage PO 1,000 mg BID-WM MARIA R Administration Pantoprazole Sodium 40 mg 05/30/19 09:00 06/01/19 08:44 Protonix PO 40 mg QAM MARIA R Administration Pyridoxine HCl 100 mg 05/31/19 09:00 06/01/19 08:43 Vitamin B 6 PO 100 mg DAILY MARIA R Administration Sodium Chloride 10 ml 05/30/19 09:00 06/01/19 08:45 Flush - Normal Saline IVF 10 ml Q12HR MARIA R Administration Tamsulosin HCl 0.4 mg 05/30/19 09:00 06/01/19 08:43 Flomax PO 0.4 mg BID MARIA R Administration Thiamine HCl 100 mg 05/31/19 09:00 06/01/19 08:44 Thiamine PO 100 mg DAILY MARIA R Administration Ticagrelor 90 mg 05/30/19 21:00 06/01/19 08:44 Brilinta PO 90 mg BID MARIA R Administration - Exam Heart: negative: RRR, no murmur, no gallops, no rubs, normal peripheral pulses, irregular, diminshed peripheral pulses, murmur present, II/IV, III/IV Respiratory: negative: CTAB, no wheezes, no rales, no ronchi, normal chest expansion, no tachypnea, normal percussion, rales, rhonchi, tachypneic, wheezes Gastrointestinal: negative: soft, non-tender, non-distended, normal bowel sounds , no palpable masses, no hepatomegaly, no splenomegaly, no bruit, tender to palpation, distended, diminished bowl sounds, voluntary guarding Hosp A/P (1) Sepsis Code(s): A41.9 - SEPSIS, UNSPECIFIED ORGANISM Status: Acute (2) UTI (urinary tract infection) Status: Acute (3) CAD (coronary artery disease) Code(s): I25.10 - ATHSCL HEART DISEASE OF [place] CORONARY ARTERY W/O ANG PCTRS Status: Acute - Plan pt continued to have fever. i did change his abx to meropenam. his cx shows 25- 50,000 colonies and sensitivity is pending. He feels well now. will continue iv fluids and monitor him overnight. His ct abd/pel is negative.
[2019-06-01] MEDS: Atorvastatin Calcium 10 MG TAB PO SCH (20:10)
[2019-06-02] MEDS: MEROPENEM 1 GM/50 ML 1 GM in Premix Bag 1 BAG IVPB SCH ×2 (01:06→09:00)
[2019-06-02] MEDS: Acetaminophen 325 MG TAB PO PRN (05:06)
[2019-06-02] MEDS: metFORMIN 500 MG TAB PO SCH (08:57)
[2019-06-02] MEDS: pyridOXINE 50 MG (B6) TAB PO SCH (08:57)
[2019-06-02] MEDS: Aspirin 81 mg Enteric Coated Tablet PO SCH (08:57)
[2019-06-02] MEDS: Amlodipine 5 mg/Benazepril 20 mg CAP PO SCH (08:58)
[2019-06-02] MEDS: Tamsulosin HCl 0.4 MG CAP PO SCH (08:58)
[2019-06-02] MEDS: Cyanocobalamin (Vitamin B-12) 1,000 MCG TAB PO SCH (08:58)
[2019-06-02] MEDS: Finasteride 5 MG TAB PO SCH (08:58)
[2019-06-02] MEDS: Gabapentin 300 MG CAP PO SCH (08:59)
[2019-06-02] MEDS: TICAGRELOR 90 MG TABLET PO SCH (08:59)
[2019-06-02] MEDS: Thiamine 100 MG TAB PO SCH (08:59)
[2019-06-02] MEDS: Enoxaparin Sodium 40 MG/0.4 ML SYRINGE SC SCH (09:00)
[2019-06-02 12:25] VITALS: BP 111/74; TEMP 97.8
== END 2019-06-02 14:00 | disposition home or self-care (01) | DRG 872 ==
LOC: SCSER 03:20 → OBSVTOIN 04:40 → T4-A 04:40
PROVIDERS: ADMIT Hospitalist; ATTEND Hospitalist
DX: A41.9 Sepsis, unspecified organism (principal); E11.9 Type 2 diabetes mellitus without complications; K21.9 Gastro-esophageal reflux disease without esophagitis; E78.5 Hyperlipidemia, unspecified; I10 Essential (primary) hypertension; N40.0 Benign prostatic hyperplasia without lower urinary tract symptoms; I25.10 Atherosclerotic heart disease of native coronary artery without angina pectoris; Z95.5 Presence of coronary angioplasty implant and graft
CPT/HCPCS: 36415; 36416; 51702; 71045; 74176; 80048; 80053; 81003; 81015; 83605; 85025; 87040; 87077; 87086; 87186; 96361; 96365; J0696; J1650; J2185; J3490

== ENCOUNTER 2022-08-31 08:56 | Outpatient (CLI) | payer MEDICARE | END 2022-08-31 08:57 | disposition home or self-care (01) | LOC: TBSIIMAG 08:56 | PROVIDERS: ATTEND Neurological Surgery | DX: M47.26 Other spondylosis with radiculopathy, lumbar region (principal); M47.817 Spondylosis without myelopathy or radiculopathy, lumbosacral region; M48.061 Spinal stenosis, lumbar region without neurogenic claudication; M48.07 Spinal stenosis, lumbosacral region | CPT/HCPCS: 72148 ==

== ENCOUNTER 2022-09-11 05:40 | Day surgery (SDC) | payer MEDICARE ==
[2022-09-10 10:56] VITALS: BMI 31.0
[2022-09-11] MEDS ORDERED: SUGAMMADEX SODIUM 200 MG/2 ML VIAL ONE (06:41)
[2022-09-11] MEDS ORDERED: Famotidine/PF 20 mg/2ml Vial ONE (06:41)
[2022-09-11] MEDS ORDERED: fentaNYL PF 100 MCG/2 ML SYRINGE ONE (06:41)
[2022-09-11] MEDS ORDERED: Thrombin 5000 UNITS/5 ML VIAL ONE (06:42)
[2022-09-11] MEDS ORDERED: Bupivacaine/Epinephrine 0.25% 30 ML VIAL ONE (06:42)
[2022-09-11] MEDS ORDERED: CEFAZOLIN 2 GM VIAL ONE ×2 (06:48→10:45)
[2022-09-11] MEDS ORDERED: Sodium Chloride 0.9% 100 ML ONE ×2 (06:48→10:45)
[2022-09-11] MEDS ORDERED: Bupivacaine HCl 0.5%/Epinephrine 1:200,000/PF 30 ml Vial ONE (06:49)
[2022-09-11] MEDS ORDERED: PROPOFOL 200 MG/20 ML VIAL ONE (07:02)
[2022-09-11] MEDS ORDERED: Ketorolac Tromethamine 30 MG/ML VIAL ONE (07:02)
[2022-09-11] MEDS ORDERED: Metoclopramide HCl 10 MG/2 ML VIAL ONE (07:02)
[2022-09-11] MEDS ORDERED: Rocuronium Bromide 10 MG/ML (10ML VIAL) ONE (07:02)
[2022-09-11] MEDS ORDERED: Ondansetron PF 4 MG/2 ML Vial ONE (07:02)
[2022-09-11] MEDS ORDERED: Dexamethasone 20 MG/5 ML VIAL ONE (07:02)
[2022-09-11] MEDS ORDERED: PHENYLEPHRINE-NS 100 MCG/ML 10 ML SYRINGE ONE (07:02)
[2022-09-11] MEDS ORDERED: ePHEDrine 50 MG/ML VIAL ONE (07:02)
[2022-09-11] MEDS ORDERED: Tamsulosin HCl 0.4 MG CAP ONE (08:52)
[2022-09-11] MEDS ORDERED: Acetaminophen/Codeine 30-300mg Tablet ONE (11:20)
== END 2022-09-11 11:40 | disposition home or self-care (01) ==
LOC: SDC 05:40
PROVIDERS: ATTEND Neurological Surgery
PROC: 01NB0ZZ Release Lumbar Nerve, Open Approach (ICD-10-PCS; principal; 2022-09-11)
DX: M51.16 Intervertebral disc disorders with radiculopathy, lumbar region (principal); Z79.02 Long term (current) use of antithrombotics/antiplatelets; Z79.52 Long term (current) use of systemic steroids; Z79.82 Long term (current) use of aspirin; Z79.84 Long term (current) use of oral hypoglycemic drugs; Z79.899 Other long term (current) drug therapy; Z98.1 Arthrodesis status
CPT/HCPCS: J1100; J1885; J2405; J2704; J2765; J3490; S0028